=== PATIENT | female | born 1985 | race Caucasian/White ===

== ENCOUNTER 2017-10-19 16:28 | Emergency (ER) | payer BC ==
--- NOTE | 2017-10-20 09:52 | CONS ---
DATE OF CONSULTATION: 10/19/2017 DATE OF : 1985 PRIMARY CARE PHYSICIAN: JEANNINE Phan HISTORY OF PRESENT ILLNESS: The patient is a 32-year-old otherwise healthy female, for whom I was consulted regarding evaluation of her left knee/possible septic arthritis. She was seen by her primary care physician earlier today. Reportedly, there was concern for a septic knee. Labs were ordered, as were x-rays. The patient was referred for clinic evaluation tomorrow. I did review the clinic and, given the possibility of septic arthritis, I felt it is most appropriate for the patient to be seen on an urgent basis. She was, therefore, told to report to the Emergency Department, and I saw her at that location. She reports about 24 hours of redness, warmth, and pain involving her lower leg just distal to the knee. She did not remember any obvious trauma to this region. However, she does have chronic eczema involving both of her lower extremities and this does include the area described. She feels warm at home, but has not measured temperature. She has been afebrile during her [facility]. She denies previous issues with respect to this leg or knee. She is able to bear weight with only minimal discomfort. Flexion or extension of the knee, however, does cause pain primarily involving the anterior aspect of the lower leg just distal to the knee. She denies any drainage. She has not had similar symptoms previously. PAST MEDICAL HISTORY: She reports eczema. PAST SURGICAL HISTORY: x2. SOCIAL HISTORY: She denies tobacco. REVIEW OF SYSTEMS: She denies additional complaints currently. PHYSICAL EXAMINATION: GENERAL: Reveals a well-appearing female. She is alert and oriented. She displays appropriate judgment and normal affect. VITAL SIGNS: From the Emergency Department, were reviewed. She is afebrile with a temperature of 37.4, pulse is 91, blood pressure 131/72, saturating 99% on room air. EXTREMITIES: Evaluation of her bilateral lower extremities does show some chronic eczema involving the anterior calf region. On the left side, there is an area of redness and warmth involving the anterior aspect of the lower leg. This extends from just distal to the patella/tibial tubercle region about 15 cm distally to the midportion of the anterior lower leg. There is no drainage. There does not seem to be obvious fluctuance or swelling to indicate purulent collection. With respect to the knee itself, there is really no tenderness to palpation along the medial, anterior, or lateral aspect of the knee. The tenderness only begins at the level of the cellulitis, which is just distal. She does not have pain with manipulation of the patella. She has no pain with axial loading. She does have pain with flexion and extension of the knee, which was referred to the anterior aspect of the previously described cellulitis. There may be a very minimal effusion involving the knee, although this is not substantial. The knee itself is not warm. She is neurovascularly intact distally. DIAGNOSTIC DATA: Results reviewed. Plain films obtained earlier today were reviewed. These show no bony abnormalities. Does not appear to be a substantial effusion in the knee. Laboratory results from earlier today were reviewed as well. These were notable for mildly elevated CRP. White count was in the normal range with a slight left shift. ESR was in the normal range. Rheumatoid factor was normal/negative. ASSESSMENT: Left lower leg cellulitis. Based on the clinical examination, I have minimal concern for septic knee arthritis at this time. PLAN: I considered an aspiration, although, given the clinical findings previously described, I think that septic knee arthritis is extremely unlikely. Therefore, I feel that the risk of an aspiration in the general region of cellulitis far outweighs the potential benefits of definitively ruling out a septic joint in this case. Again, my clinical concern for a septic joint is very low. The patient has already been prescribed Keflex by her primary care provider. I recommend that she take this as instructed. I did use a marker to delineate the area of cellulitis. The patient is instructed to follow up with her primary care physician early next week. If over the weekend, she has worsening redness, fevers, swelling, pain, or other concerning complaints, she is to present to the Emergency Department and could potentially be a candidate for intravenous antibiotics. The patient expressed agreement with this plan. TARIQ / ASHANTI /[id number]
== END 2017-10-19 17:33 | disposition home or self-care (01) ==
LOC: MW.ED 16:28
DX: Z53.21 Procedure and treatment not carried out due to patient leaving prior to being seen by health care provider (principal)